=== PATIENT | female | born 2000 | race Caucasian/White ===

== ENCOUNTER → 2024-05-20 17:01 | Outpatient (REF) | payer BC, SELFPAY | LOC: RAD 17:01 | PROVIDERS: ATTENDING PHYSICIAN Nurse Practitioner Adult Health | DX: R05.3 Chronic cough (principal) | CPT/HCPCS: 71046 ==

== ENCOUNTER → 2024-08-27 08:10 | Outpatient (REF) | payer BC, SELFPAY | LOC: RAD 08:10 | PROVIDERS: ATTENDING PHYSICIAN Physician Assistant Medical; FAMILY PHYSICIAN Nurse Practitioner Adult Health | DX: R09.81 Nasal congestion (principal); J32.9 Chronic sinusitis, unspecified | CPT/HCPCS: 70486 ==